=== PATIENT | male | born 1970 | race Caucasian/White ===

== ENCOUNTER 2019-11-18 19:33 | Emergency (ER) | payer OTHER, BC ==
[~2019-11-18] VITALS: Ht 165.1 cm; Wt 105.0 kg
[2019-11-18] MEDS ORDERED: KETOROLAC 30 MG/ML VIAL. ONE (20:26)
[2019-11-18] MEDS ORDERED: KETOROLAC 30 MG/ML VIAL. IM ONE (20:30)
[2019-11-18] MEDS ORDERED: ORPH-16 PO (20:52)
[2019-11-18] MEDS ORDERED: HYDR-3165 PO (20:52)
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
[2019-11-18 21:02] VITALS: BP 121/78
== END 2019-11-18 21:04 | disposition home or self-care (01) ==
LOC: ER 19:33
DX: S76.011A Strain of muscle, fascia and tendon of right hip, initial encounter (principal); M54.5 Low back pain; I10 Essential (primary) hypertension; Z98.890 Other specified postprocedural states; V23.4XXA Motorcycle driver injured in collision with car, pick-up truck or van in traffic accident, initial encounter; Y92.480 Sidewalk as the place of occurrence of the external cause; Y93.89 Activity, other specified; Y99.8 Other external cause status
CPT/HCPCS: 73502; 96372; 99283; J1885

== ENCOUNTER → 2019-11-23 | Outpatient (CLI) | payer OTHER, BC ==
[2019-11-18 21:02] VITALS: BP 121/78
[~2019-11-23] MED LIST: HYDR-3165 PO; ORPH-16 PO
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
== END | disposition home or self-care (01) ==
LOC: RAD 17:58
PROVIDERS: ATTEND Physician Assistant Medical
DX: M51.35 Other intervertebral disc degeneration, thoracolumbar region (principal); M47.817 Spondylosis without myelopathy or radiculopathy, lumbosacral region
CPT/HCPCS: 72110